=== PATIENT | female | born 1950 | race Caucasian/White ===

== ENCOUNTER 2017-01-30 09:59 | Day surgery (SDC) | payer OTHER ==
[2017-01-28 07:52] LABS: BILIRUBIN,URINE NEGATIVE (NEGATIVE); BLOOD, URINE NEGATIVE (NEGATIVE); CLARITY/URINE SL HAZY (CLEAR); COLOR,URINE YELLOW (YELLOW); GLUCOSE,URINE NEGATIVE (NEGATIVE); KETONES,URINE NEGATIVE (NEGATIVE); LEUKOCYTE ESTERASE ,URINE NEGATIVE (NEGATIVE); NITRITE, URINE NEGATIVE (NEGATIVE); PROTEIN URINE NEGATIVE (NEGATIVE); UROBILINOGEN,URINE 0.2 (0.2-1.0)
[2017-01-28 08:04] LABS: BASOPHILS # (AUTO) 0.1 K/uL (0.0-0.2); BASOPHILS % (AUTO) 1.2 % (0.0-2.0); CALCIUM 8.8 mg/dL (8.4-11.0); CREATININE 0.74 mg/dL (0.55-1.30); EOSINOPHILS # (AUTO) 0.1 K/uL (0.0-0.4); EOSINOPHILS % (AUTO) 2.4 % (0.0-4.0); HEMATOCRIT 42.2 % (36-48); HEMOGLOBIN 14.2 g/dL (12.0-16.0); LYMPHOCYTES % (AUTO) 36.9 % (20.5-51.5); MEAN CORPUSCULAR HEMOGLOBIN 31 pg (27-31); MEAN CORPUSCULAR HGB CONC 34 % (32-36); MEAN CORPUSCULAR VOLUME 93 fL (79.0-98.0); MONOCYTES # (AUTO) 0.4 K/uL (0.0-1.0); MONOCYTES % (AUTO) 7.7 % (1.7-9.3); NEUTROPHILS # (AUTO) 2.9 K/uL (1.8-7.7); NEUTROPHILS % (AUTO) 51.8 % (40.0-70.0); PLATELET COUNT (AUTO) 203 K/uL (130-430); RED BLOOD CELL COUNT(AUTO) 4.54 MIL/uL (4.2-6.2); RED CELL DISTRIBUTION WIDTH 12.3 % (9.0-15.0); WHITE BLOOD COUNT (AUTO) 5.5 K/uL (4.8-10.8)
[~2017-01-30] VITALS: Ht 162.6 cm; Wt 95.3 kg
[~2017-01-30 09:59] MED LIST: CEFAZOLIN SOD 2 GM in D5W 50 ML IV ONE
[2017-01-30 10:46] VITALS: O2SAT 96
[2017-01-30] MEDS ORDERED: NS IRRIG SOLN 5000 ML IR ONE (12:30)
[2017-01-30] MEDS ORDERED: fentaNYL CITRATE 250 MCG/5 ML AMP IV ONE (12:30)
[2017-01-30] MEDS ORDERED: MIDAZOLAM HCL 5 MG/5 ML VIAL IVP ONE (12:30)
[2017-01-30] MEDS ORDERED: KETOROLAC TROMETHAMINE 30 MG VIAL IVP ONE (12:30)
[2017-01-30] MEDS ORDERED: ONDANSETRON HCL 4 MG/2 ML VIAL IVP ONE (12:30)
[2017-01-30] MEDS ORDERED: BUPIVACAINE /EPINEPHRINE/PF 0.25% 30 ML VIAL INJ ONE (12:30)
[2017-01-30] MEDS ORDERED: DESFLURANE 15 MIN GAS INH ONE (12:30)
[2017-01-30] MEDS ORDERED: NS 1000 ML BAG IV ONE (12:30)
[2017-01-30] MEDS ORDERED: PROPOFOL 200MG/ 20ML VIAL (DIPRIVAN) IV ONE (12:30)
[2017-01-30] MEDS ORDERED: ROCURONIUM BROMIDE 10 MG/ML (ZEMURON) IV ONE (12:30)
[2017-01-30] MEDS ORDERED: LR 1,000 ML IV SCH ×2 (13:25→14:24)
[2017-01-30] MEDS ORDERED: MORPHINE 2 MG/ML INJ. SYRINGE IVP PRN ×3 (13:30)
[2017-01-30] MEDS ORDERED: METOCLOPRAMIDE HCL 10 MG/2 ML VIAL IVP PRN (13:30)
[2017-01-30] MEDS ORDERED: HYDROcodone/ACETAMIN 5-325 MG TAB (NORCO/ VICODIN) PO PRN (14:30)
[2017-01-30 17:14] VITALS: BP 110/64; PULSE 80; RESP 16
== END 2017-01-30 16:55 | disposition home or self-care (01) ==
LOC: SDS 09:59 → SMU 09:59 → SDS 16:55
PROVIDERS: ATTEND Orthopaedic Surgery
DX: M23.222 Derangement of posterior horn of medial meniscus due to old tear or injury, left knee (principal); M17.12 Unilateral primary osteoarthritis, left knee; M94.262 Chondromalacia, left knee
CPT/HCPCS: 36415; 71020-TC; 80048; 81003; 85025; J0690; J1885; J2250; J2405; J2704; J3010; J3490; J7030; J7060; J7120

== ENCOUNTER 2018-07-12 12:53 | Outpatient (CLI) | payer OTHER | END 2018-07-12 20:00 | disposition home or self-care (01) | LOC: SUS 12:53 | PROVIDERS: ATTEND Orthopaedic Surgery | DX: R22.31 Localized swelling, mass and lump, right upper limb (principal) ==

== ENCOUNTER 2019-07-07 08:18 | Outpatient (CLI) | payer OTHER | END 2019-07-07 20:34 | disposition home or self-care (01) | LOC: SMA 08:18 | PROVIDERS: ATTEND Physician Assistant Medical | DX: N60.02 Solitary cyst of left breast (principal); Q83.1 Accessory breast | CPT/HCPCS: 76641; 77066 ==

== ENCOUNTER 2020-12-13 09:06 | Outpatient (CLI) | payer OTHER | END 2020-12-13 20:35 | disposition home or self-care (01) | LOC: SMA 09:06 | PROVIDERS: ATTEND Family Medicine | DX: R92.1 Mammographic calcification found on diagnostic imaging of breast (principal); R92.2 Inconclusive mammogram | CPT/HCPCS: 77066 ==

== ENCOUNTER 2024-06-02 08:47 | Outpatient (CLI) | payer OTHER | END 2024-06-02 21:29 | disposition home or self-care (01) | LOC: SMA 08:47 | PROVIDERS: ATTEND Physician Assistant Medical | DX: Z12.31 Encounter for screening mammogram for malignant neoplasm of breast (principal) | CPT/HCPCS: 77067 ==